=== PATIENT | female | born 1935 | race Caucasian/White ===

== ENCOUNTER 2019-07-06 08:34 | Outpatient (RCR) | payer MEDICARE, SELFPAY | END 2019-07-26 23:59 | disposition home or self-care (01) | LOC: SPT 08:34 | PROVIDERS: Referring Provider Family Medicine; Visit Provider Family Medicine | DX: R53.1 Weakness (principal); R54 Age-related physical debility; R26.9 Unspecified abnormalities of gait and mobility | CPT/HCPCS: 97110; 97112; 97161 ==

== ENCOUNTER 2021-02-22 20:18 | Emergency (ER) | payer MEDICARE, SELFPAY ==
[2021-02-22] VITALS (39 sets, daily range): BP systolic 125–144; BP diastolic 49–95; PULSE 90–125; RESP 16–32; O2SAT 87–100; BMI 22.1
--- NOTE | 2021-02-22 20:54 | XRR_ITS ---
PROCEDURE INFORMATION: Exam: XR Chest Exam date and time: 02/22/2021 8:54 PM Age: 85 years old Clinical indication: Injury or trauma; Fall; Blunt trauma (contusions or hematomas); Prior surgery; Surgery type: Gb; Additional info: AMS, fall TECHNIQUE: Imaging protocol: XR of the chest. Views: 1 view. COMPARISON: No relevant prior studies available. FINDINGS: Lungs: Lungs are clear bilaterally. Pleural spaces: No pleural effusion. No pneumothorax. Heart/Mediastinum: The cardiac silhouette and mediastinal contours are unremarkable. Bones/joints: Unremarkable for age. XR/XR chest 1V portable [id number] IMPRESSION: No acute cardiopulmonary process. Radiation Dose CTDIVOL = (mGy): DLP = (mGy-cm)
--- NOTE | 2021-02-22 20:54 | CTR_ITS ---
PROCEDURE INFORMATION: Exam: CT Head Without Contrast Exam date and time: 02/22/2021 8:54 PM Age: 85 years old Clinical indication: Altered mental status/memory loss; Patient HX: Per family, patient is acting more confused than normal. ; Additional info: AMS TECHNIQUE: Imaging protocol: Computed tomography of the head without contrast. Sagittal and coronal reformatted images were created and reviewed. Radiation optimization: All CT scans at this facility use at least one of these dose optimization techniques: automated exposure control; mA and/or kV adjustment per patient size (includes targeted exams where dose is matched to clinical indication); or iterative reconstruction. COMPARISON: No relevant prior studies available. RADIATION DOSE METRICS: Total DLP (mGy-cm): 731.64 FINDINGS: Limitations: Motion artifact on multiple images that can limit evaluation. Brain: No acute intracranial hemorrhage. No acute infarct. No intra-axial or extra-axial masses. Cummings-white matter differentiation is preserved. No cerebral edema. No extra-axial fluid collections. No midline shift. No evidence for Chiari 1 malformation. Moderate atrophy of the brain parenchyma. Moderately decreased attenuation in the deep white matter, consistent with moderate chronic microangiopathic change. Cerebral ventricles: No hydrocephalus. Paranasal sinuses: Visualized paranasal sinuses are clear. Mastoid air cells: Small amount of fluid in the right and left mastoid air cells. Orbital cavity: No acute abnormality in the visualized orbits. Vasculature: Atherosclerotic changes in the visualized arteries. Bones/joints: No acute fracture. Soft tissues: The extracranial soft tissues are unremarkable. CT/CT head wo con* [id number] IMPRESSION: 1. No acute abnormality of the brain. 2. Moderate atrophy of the brain parenchyma. 3. Moderate chronic white matter microangiopathic change. 4. Small amount of fluid in the right and left mastoid air cells. 5. Incidental/nonacute findings are listed in the report. Radiation Dose CTDIVOL = (mGy): DLP = 731.64 (mGy-cm)
--- NOTE | 2021-02-22 20:56 | ECG_ITS ---
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 Measurements Intervals [place] Rate: 104 P: 6 AL: 125 QRS: 13 QRSD: 87 T: 45 QT: 313 QTc: 413 Interpretive Statements SINUS TACHYCARDIA ABNORMAL RHYTHM ECG No previous ECG available for comparison Electronically Signed On 02-23-2021 8:51:22 CDT by Millie Hsieh M.D. [email or web address]
[2021-02-22] MEDS: sodium chloride 0.9% 1,000 ML 999 ML IV (21:00)
[2021-02-22 21:07] LABS: Basophils # 0.1 10^3/uL (0.0-0.1); Basophils % 0.3 %; Hematocrit 45.9 % (37.0-47.0); Hemoglobin 15.1 g/dL (11.5-15.3); Lymphocytes # 0.9 10^3/uL (0.8-4.8); Lymphocytes % 3.5 %; Mean Corpuscular HGB Conc 32.9 g/dL (30.0-36.0); Mean Corpuscular Hemoglobin 28.4 pg (28.0-34.0); Mean Corpuscular Volume 86.4 fl (81-99); Mean Platelet Volume 11.3 fL (7.4-10.4); Monocytes # 1.4 10^3/uL (0.2-0.9); Monocytes % 5.8 %; Neutrophils # 21.88 10^3/uL (1.8-7.7); Neutrophils % 89.9 %; Nucleated Red Blood Cells % 0 %; Platelet Count 377 10^3/cmm (130-400); Red Blood Count 5.31 10^6/uL (4.1-5.3); Red Cell Distribution Width 13.3 % (12.1-15.1); White Blood Count 24.4 10^3/uL (4.0-10.0)
[2021-02-22 21:20] LABS: Troponin(5th) Baseline 13 ng/L (0-10)
[2021-02-22 21:28] LABS: Alanine Aminotransferase 13 U/L (0-33); Albumin Level 4.2 g/dL (3.5-5.2); Alkaline Phosphatase 126 IU/L (35-105); Anion Gap 22.8 (5-19); Aspartate Amino Transferase 18 U/L (0-32); Blood Urea Nitrogen 25 mg/dL (8-23); C Reactive Protein 4.5 mg/L (0.0-4.9); Calcium 9.8 mg/dL (8.5-10.5); Carbon Dioxide 18 mmol/L (22-29); Chloride 104 mmol/L (98-107); Glucose 245 mg/dL (65-115); NT Pro B Type Natriuretic Pept 218 pg/mL (0-450); Osmolality Calculated 305 mOsm/kg (285-295); Potassium 3.8 mmol/L (3.5-5.1); Sodium 141 mmol/L (136-145); Total Bilirubin 0.8 mg/dL (0.15-1.2); Total Protein 7.2 g/dL (6.6-8.7)
[2021-02-22 21:50] LABS: Creatine Phosphokinase 107 U/L (26-192)
[2021-02-22 23:44] LABS: Lactate (Lactic Acid level) 1.1 mmol/L (0.5-2.2)
--- NOTE | 2021-02-22 23:52 | CTR_ITS ---
PROCEDURE INFORMATION: Exam: CT Abdomen And Pelvis With Contrast Exam date and time: 02/22/2021 11:52 PM Age: 85 years old Clinical indication: Abnormal findings; Abnormal lab test; Elevated wbc; Patient HX: Diarrhea with wbc of 24k. Patient poor historian. ; Additional info: Abd pain, diarrhea TECHNIQUE: Imaging protocol: Computed tomography of the abdomen and pelvis with contrast. Radiation optimization: All CT scans at this facility use at least one of these dose optimization techniques: automated exposure control; mA and/or kV adjustment per patient size (includes targeted exams where dose is matched to clinical indication); or iterative reconstruction. Contrast material: OMNI 300; Contrast volume: 75 ml; Contrast route: INTRAVENOUS (IV); COMPARISON: CR (CHEST, ) 02/22/2021 9:00 PM RADIATION DOSE METRICS: Total DLP (mGy-cm): 705.38 FINDINGS: Liver: See Gallbladder and bile ducts finding. Gallbladder and bile ducts: The gallbladder is surgically absent. There is significant dilatation of the intrahepatic biliary tree, common hepatic duct and common bile duct. Within the mid common bile duct there is a calculus measuring up to 1.3 cm producing obstruction. See coronal image 31 of series 602. Pancreas: Normal. No ductal dilation. Spleen: Normal. No splenomegaly. Adrenal glands: Normal. No mass. Kidneys and ureters: There appear to be bilateral renal parapelvic cysts. This is probably not due to hydronephrosis. Stomach and bowel: The rectum is distended with stool up to 6.6 cm. Distal colonic diverticula are not inflamed. Appendix: No evidence of appendicitis. Intraperitoneal space: Respiratory motion artifacts degrade image quality in the upper abdomen. Vasculature: Unremarkable. No abdominal aortic aneurysm. Lymph nodes: Unremarkable. No enlarged lymph nodes. Urinary bladder: Unremarkable as visualized. Reproductive: Unremarkable as visualized. Bones/joints: Chronic degenerative disc disease is greatest at L5-S1 and L2-L3 along with disc spur complexes. There is mild degenerative subluxation at L4-L5. Soft tissues: Unremarkable. CT/CT abdomen pelvis w con* [id number] IMPRESSION: 1. Choledocholithiasis producing biliary obstruction. 2. Distal colonic fecal distention. 3. Colonic diverticulosis. 4. Other chronic and incidental findings as described COMMENTS: Consistent with the [employer]'s Incidental Findings Committee white paper (J Am Mary Radiol 2018): Any incidental renal lesion less than 1 cm or classified as too small to characterize, or any incidental cystic renal lesion characterized as simple-appearing, is likely benign. No follow-up imaging is recommended for these lesions per consensus recommendations based on imaging criteria. Radiation Dose CTDIVOL = (mGy): DLP = 705.38 (mGy-cm)
[2021-02-23] VITALS (52 sets, daily range): BP systolic 62–153; BP diastolic 44–133; PULSE 90–108; RESP 19–34; O2SAT 85–99
[2021-02-23] MEDS: iohexol 300 mg/mL 100 mL Btl IV (00:12)
[2021-02-23 00:16] LABS: Add Urine Microscopic? YES; Bilirubin Urine Neg (Negative); Blood Urine 3+ (Negative); Glucose Urine UA 2+ (Normal); Ketones Urine 1+ (Negative); Leukocyte Esterase Urine 2+ (Negative); Nitrate Urine Negative (Negative); Protein Urine Trace (Negative); Urine Color Yellow (Yellow); Urobilinogen Urine 1 mg/dL (Negative); pH Urine 5 (5-7)
[2021-02-23 00:21] LABS: RBC Urine 50-80 /hpf (0-2); Squamous Epithelial Cell Urine 40-55 /hpf (0-5); WBC Urine >100 /hpf (0-5)
[2021-02-23 00:22] LABS: Add Urine Culture? No; Bacteria Urine 4+ /hpf
[2021-02-23] MEDS: piperacillin-tazobactam 3.375 GM in sodium chloride 0.9% (plus) 50 ML IV (01:30)
[2021-02-23 02:27] LABS: Troponin 5 6HR 9.95 ng/L (0-10)
[2021-02-23 02:34] LABS: Troponin 5 6HR Delta -3.05 ng/L (0-12)
--- NOTE | 2021-02-23 02:38 | W.ED.AMS ---
HPI - Altered Mental Status General: Chief Complaint: Altered Mental Status Stated Complaint: fall, confusion Time Seen by Provider: 02/22/21 20:25 History of Present Illness: HPI narrative: 85-year-old female who lives at home alone. Her son checks on her multiple times daily. He left her house around 2 PM, and return sometime after 630, to find her in the floor in the bathroom. She has been more weak of late generally. She is also more confused. They deny fevers, cough, shortness of breath, significant abdominal pain or vomiting. MD complaint: altered mental status, confusion and weakness Onset (ago): hour(s) Timing confirmed by: family member Severity: moderate Review of Systems General: Reports: ROS unobtainable due to medical condition (Family answers) Const: Denies: fever(s) Eyes: Denies: change in vision Card: Denies: chest pain or palpitations Resp: Denies: dyspnea, productive cough or non-productive cough GI: Denies: abdominal pain, nausea or vomiting : Denies: dysuria Neuro: Reports: weakness in extremities; Denies: headache(s) Physical Exam Const: COMMON NORMALS: no acute distress and alert GENERAL APPEARANCE: cooperative, comfortable, well kempt and frail appearing ORIENTATION/CONSCIOUSNESS: Yes awake, Yes oriented to person and Yes oriented to place; not oriented to time Eye: COMMON NORMALS: Equal, round and reactive pupils present PUPIL: Yes Equal, round and reactive pupils present Chest: COMMONS NORMALS: normal inspection of the chest Resp: COMMON NORMALS: normal respiratory effort, No use of accessory muscles and clear to auscultation bilaterally AUSCULTATION: clear to auscultation bilaterally Cardio: COMMON NORMALS: regular rhythm RATE: tachycardic RHYTHM: regular rhythm GI: COMMON NORMALS: Soft to palpation and non-tender INSPECTION: Yes abdominal distension (mild) PALPATION: Yes Soft to palpation Neuro: SENSORIUM/ORIENTATION: Yes alert, Yes oriented to person, Yes oriented to place and No oriented to time Psych: APPEARANCE: Yes well kempt Course Vital Signs: Vital signs: Vital Signs Pulse Rate 95 02/23/21 03:25 Respiratory Rate 22 H 02/23/21 03:25 Blood Pressure 131/89 02/23/21 03:25 Pulse Oximetry 98 02/23/21 03:25 MDM - Altered Mental Status MDM Narrative: Medical decision making narrative: 85-year-old female with generalized weakness. She has some belly distention on exam. She had an episode of diarrhea here. Her white blood cell count is 24 with 90% neutrophils. Her bicarbonate level is 18. She is slightly prerenal azotemic. Her liver enzymes are normal. Her urinalysis is contaminated, but shows a likely urinary tract infection. Her chest x-ray is negative. She had an episode of diarrhea here in the ER. With this and belly distention, CT was ordered. Shows fecal impaction of 6 cm. It also shows a common bile duct dilated to 1.3 cm with a stone obstructing, causing intrahepatic dilatation as well. This patient does not have a gallbladder. It was removed years ago. This patient has a cystic choledocholithiasis, of unknown clinical significance. Although she appears to have intrahepatic dilatation, her liver enzymes are normal. Her urinary tract infection is treated with IV antibiotics. She is covered for potential ascending cholangitis, although she has no fever, no jaundice, and no distinct right upper quadrant pain. We have no gastroenterology service or ERCP capability here. Because of this, multiple facilities have been contacted. There are no beds in [facility] or [place] for this patient. Spoke with hospitalist service at [facility] in [facility]. They have a bed and are willing to take this patient in transfer. She remains stable. Lab Data: Labs: Lab Results 02/22/21 02/22/21 02/22/21 20:05 20:05 20:05 WBC 24.4 10^3/uL H 10 ^3/uL (4.0-10.0) RBC 5.31 10^6/uL H 10 ^6/uL (4.1-5.3) Hgb 15.1 g/dL g/dL (11.5-15.3) Hct 45.9 % % (37.0-47.0) MCV 86.4 fl fl (81-99) MCH 28.4 pg pg (28.0-34.0) MCHC 32.9 g/dL g/dL (30.0-36.0) RDW 13.3 % % (12.1-15.1) Plt Count 377 10^3/cmm 10^3 /cmm (130-400) MPV 11.3 fL H fL (7.4-10.4) Neut % (Auto) 89.9 % % Lymph % (Auto) 3.5 % % [place] % (Auto) 5.8 % % Eos % (Auto) 0.0 % % Baso % (Auto) 0.3 % % Neut # (Auto) 21.88 10^3/uL H 1 0^3/uL (1.8-7.7) Lymph # (Auto) 0.9 10^3/uL 10^3/ uL (0.8-4.8) [place] # (Auto) 1.4 10^3/uL H 10^ 3/uL (0.2-0.9) Eos # (Auto) 0.0 10^3/uL 10^3/ uL (0.0-0.8) Baso # (Auto) 0.1 10^3/uL 10^3/ uL (0.0-0.1) Nucleated RBC % (a uto) 0 % % Nucleated RBCs # 0.0 /100WBC /100W BC Sodium 141 mmol/L mmol/L (136-145) Potassium 3.8 mmol/L mmol/L (3.5-5.1) Chloride 104 mmol/L mmol/L (98-107) Carbon Dioxide 18 mmol/L L mmol/ L (22-29) Anion Gap 22.8 H (5-19) BUN 25 mg/dL H mg/dL (8-23) Creatinine 0.7 mg/dL mg/dL (0.5-0.9) GFR Calculation Not Reportable Glucose 245 mg/dL H mg/dL (65-115) Calculated Osmolal ity 305 mOsm/kg H mOs m/kg (285-295) Lactate Calcium 9.8 mg/dL mg/dL (8.5-10.5) Total Bilirubin 0.8 mg/dL mg/dL (0.15-1.2) AST 18 U/L U/L (0-32) ALT 13 U/L U/L (0-33) Alkaline Phosphata se 126 IU/L H IU/L (35-105) Creatine Kinase Troponin T Baselin e 13 ng/L H ng/L (0-10) Troponin T 120 Min [place] Troponin T Troponin T Hi Sens 6Hr Troponin T Hi Sens 6Hr Delta C-Reactive Protein 4.5 mg/L mg/L (0.0-4.9) NT-Pro-B Natriuret Pep 218 pg/mL pg/mL (0-450) Total Protein 7.2 g/dL g/dL (6.6-8.7) Albumin 4.2 g/dL g/dL (3.5-5.2) Globulin 3.0 g/dL g/dL (1.3-4.6) Urine Color Urine Appearance Urine pH Ur Specific Gravit y Urine Protein Urine Glucose (UA) Urine Ketones Urine Blood Urine Nitrate Urine Bilirubin Urine Urobilinogen Ur Leukocyte Bina ase Urine RBC Urine WBC Ur Squamous Epith Cells Amorphous Sediment Urine Bacteria 02/22/21 02/22/21 02/22/21 20:05 23:20 23:20 WBC RBC Hgb Hct MCV MCH MCHC RDW Plt Count MPV Neut % (Auto) Lymph % (Auto) [place] % (Auto) Eos % (Auto) Baso % (Auto) Neut # (Auto) Lymph # (Auto) [place] # (Auto) Eos # (Auto) Baso # (Auto) Nucleated RBC % (a uto) Nucleated RBCs # Sodium Potassium Chloride Carbon Dioxide Anion Gap BUN Creatinine GFR Calculation Glucose Calculated Osmolal ity Lactate 1.1 mmol/L mmol/L (0.5-2.2) Calcium Total Bilirubin AST ALT Alkaline Phosphata se Creatine Kinase 107 U/L U/L (26-192) Troponin T Baselin e Troponin T 120 Min [place] 10.80 ng/L H ng/L (0-10) Delta Troponin T -2.20 ABS# L ABS# (0-10) Troponin T Hi Sens 6Hr Troponin T Hi Sens 6Hr Delta C-Reactive Protein NT-Pro-B Natriuret Pep Total Protein Albumin Globulin Urine Color Urine Appearance Urine pH Ur Specific Gravit y Urine Protein Urine Glucose (UA) Urine Ketones Urine Blood Urine Nitrate Urine Bilirubin Urine Urobilinogen Ur Leukocyte Bina ase Urine RBC Urine WBC Ur Squamous Epith Cells Amorphous Sediment Urine Bacteria 02/23/21 02/23/21 00:00 02:00 WBC RBC Hgb Hct MCV MCH MCHC RDW Plt Count MPV Neut % (Auto) Lymph % (Auto) [place] % (Auto) Eos % (Auto) Baso % (Auto) Neut # (Auto) Lymph # (Auto) [place] # (Auto) Eos # (Auto) Baso # (Auto) Nucleated RBC % (a uto) Nucleated RBCs # Sodium Potassium Chloride Carbon Dioxide Anion Gap BUN Creatinine GFR Calculation Glucose Calculated Osmolal ity Lactate Calcium Total Bilirubin AST ALT Alkaline Phosphata se Creatine Kinase Troponin T Baselin e Troponin T 120 Min [place] Troponin T Troponin T Hi Sens 6Hr 9.95 ng/L ng/L (0-10) Troponin T Hi Sens 6Hr [place] -3.05 ng/L L ng/L (0-12) C-Reactive Protein NT-Pro-B Natriuret Pep Total Protein Albumin Globulin Urine Color Yellow (Yellow) Urine Appearance Sl cloudy A (CLEAR) Urine pH 5 (5-7) Ur Specific Gravit y 1.030 (1.005-1.030) Urine Protein Trace (Negative) Urine Glucose (UA) 2+ H (Normal) Urine Ketones 1+ H (Negative) Urine Blood 3+ H (Negative) Urine Nitrate Negative (Negative) Urine Bilirubin Neg (Negative) Urine Urobilinogen 1 mg/dL H mg/dL (Negative) Ur Leukocyte Bina ase 2+ H (Negative) Urine RBC 50-80 /hpf H /hpf (0-2) Urine WBC >100 /hpf H /hpf (0-5) Ur Squamous Epith Cells 40-55 /hpf H /hpf (0-5) Amorphous Sediment Not Reportable Urine Bacteria 4+ /hpf H /hpf (NONE) Discharge Plan Discharge Patient Disposition: Xfer Short-Term Hosp Clinical Impression: Choledocholithiasis Altered mental status Qualifiers: Altered mental status type: disorientation Qualified Code(s): R41.0 - Disorientation, unspecified Urinary tract infection Qualifiers: Urinary tract infection type: acute cystitis Hematuria presence: with hematuria Qualified Code(s): N30.01 - Acute cystitis with hematuria Condition: Stable Referrals: Mack Melara MD [Primary Care Provider] - Coding Level of Care Code ED Territory Account Executive for [facility] Fwd Exam Detailed
--- NOTE | 2021-02-23 04:14 | PC.NURSE ---
[facility] called to say that they will transfer the patient after 7 a.m. due to staffing.
[2021-02-23 04:23] LABS: SARS Covid-2 Antigen Negative (Negative)
[2021-02-23] MEDS: sodium chloride 0.9% 1,000 ML 100 ML IV (05:02)
--- NOTE | 2021-02-23 06:51 | PC.NURSE ---
Pt. resting in bed. Report has been called to [facility]. Waiting on transfer.
== END 2021-02-23 07:50 | disposition short-term general hospital (02) ==
PROVIDERS: Emergency Provider Emergency Medicine; PCP Family Medicine
DX: N30.01 Acute cystitis with hematuria (principal); R41.0 Disorientation, unspecified; K80.50 Calculus of bile duct without cholangitis or cholecystitis without obstruction
CPT/HCPCS: 70450; 71045; 74177; 80053; 81001; 82550; 83605; 83880; 84484; 85025; 86140; 87426; 93005; 99285; J2543; J7030; Q9967